=== PATIENT | male | born 1950 | race Caucasian/White ===

== ENCOUNTER 2023-04-10 09:34 | Outpatient (REF) | payer MEDICARE, SELFPAY ==
--- OUTSIDE RECORDS SUMMARY | 2023-04-10 09:36 | XMS_ITS | CCD ---
Author Name Unknown Address [address] [place] [address] [phone] Organization Unknown Address [address] [place] [address] [phone] Care Team Providers Care Manager Solution Name Role Phone UMANG CARR Attending Physician [phone] Vital Signs Unknown or Not Available. Allergies Allergy Code Allergy Type Reaction Status No Known Drug Allergies 0 No known drug allergies Active Procedures Procedure Code Procedure Type Date Extracapsular Cataract Remov al w/Insert IOL Prosthesis Manual/Mech w/o Endoscopic Cyclophotocoagulat 70400 CPT 10/31/2022 Anesthesia, Proc On Eye; Lens Surgery 76321 CPT 10/31/2022 History of Immunizations Unknown or Not Available. Problems Unknown or Not Available. Results Unknown or Not Available. Active Medications Medications Administered During Visit Medication Dose Units Frequency Route Date/Time of Last Dose MIDAZOLAM INJ SDV: 2MG/2ML 2 MG X1 IVP 10/31/2022 11:10 PROPARACAINE HCL OPTH SOLN 0 .5% 15ML 1 DROP Q5MIN OPTH 10/31/2022 10:4 7 CYCLOPENTOLATE 1% OPTH SOLN 2ML 1 DROP Q5MIN OPT 10/31/2022 10:47 PHENYLEPHRINE OPTH SOLN 2.5% 2ML 1 DROP Q5MIN OPT 10/31/2022 10:47 Encounters Encounter Diagnosis Diagnosis Code Start Date Unspecified age-related cataract H259 10/31/2022 Social History Smoking Status Code Start Date End Date Light tobacco smoker [id number] Patient Decision Aids Unknown or Not Available. Discharge Instructions You were admitted to [facility] on 10/31/2022 09:57 with a principal diagnosis of Unspecified age-related cataract You had the following procedures done:Extracapsular Cataract Removal w/Insert IOL Prosthesis Manual/Mech w/o Endoscopic CyclophotocoagulatAnesthesia, Proc On Eye; Lens Surgery You were discharged from [facility] on 10/31/2022 11:52 Should you have any questions prior to discharge, please contact a member of your healthcare team. If you have left the hospital and have any questions, please contact your primary care physician. Chief Complaint and Reason For Visit Unknown or Not Available. Function Status Unknown or Not Available. Plan of Care Unknown or Not Available. Referral/Transition of Care Unknown or Not Available.
--- OUTSIDE RECORDS SUMMARY | 2023-04-10 09:37 | XMS_ITS | CCD ---
Author Name Unknown Address [address] [place] [address] [phone] Organization Unknown Address [address] [place] [address] [phone] Care Team Providers Care Pump Technician Name Role Phone UMANG CARR Attending Physician [phone] Vital Signs Unknown or Not Available. Allergies Allergy Code Allergy Type Reaction Status No Known Drug Allergies 0 No known drug allergies Active Procedures Procedure Code Procedure Type Date Extracapsular Cataract Remov al w/Insert IOL Prosthesis Manual/Mech w/o Endoscopic Cyclophotocoagulat 92719 CPT 10/10/2022 Anesthesia, Proc On Eye; Lens Surgery 32215 CPT 10/10/2022 History of Immunizations Unknown or Not Available. Problems Unknown or Not Available. Results Unknown or Not Available. Active Medications Medications Administered During Visit Unknown or Not Available. Encounters Encounter Diagnosis Diagnosis Code Start Date Unspecified age-related cataract H259 10/10/2022 Social History Unknown or Not Available. Patient Decision Aids Unknown or Not Available. Discharge Instructions You were admitted to [facility] on 10/10/2022 08:25 with a principal diagnosis of Unspecified age-related cataract You had the following procedures done:Extracapsular Cataract Removal w/Insert IOL Prosthesis Manual/Mech w/o Endoscopic CyclophotocoagulatAnesthesia, Proc On Eye; Lens Surgery You were discharged from [facility] on 10/10/2022 11:04 Should you have any questions prior to [...]
[2023-04-10 20:51] LABS: ALT 33 U/L (16-63); AST 25 U/L (15-37); Albumin 3.9 g/dL (3.4-5.0); Alkaline Phosphatase 52 U/L (46-116); BUN 20 mg/dL (7-18); Bilirubin, Total 0.7 mg/dL (0.2-1.0); Calcium 9.3 mg/dL (8.5-10.1); Calculated LDL 92 mg/dL (<100); Chloride 104 mmol/L (98-107); Cholesterol 180 mg/dL (<200); Estimated GFR 79.97 (mL/min/1.73m2); Glucose 112 mg/dL (74-106); HDL Cholesterol 83 mg/dL (40-60); Potassium 4.5 mmol/L (3.5-5.1); Sodium 140 mmol/L (136-145); Total Protein 7.7 g/dL (6.4-8.2); Triglyceride 26 mg/dL (<150)
[2023-04-11 18:25] LABS: PSA, Screening 1.1 ng/mL (<=6.5)
== END 2023-04-10 09:35 | disposition home or self-care (01) ==
LOC: NCHCN 09:34
PROVIDERS: Visit Provider Nurse Practitioner Family
DX: I10 Essential (primary) hypertension (principal); E78.5 Hyperlipidemia, unspecified; Z12.5 Encounter for screening for malignant neoplasm of prostate
CPT/HCPCS: 80053; 80061; 84153

== ENCOUNTER 2023-04-29 09:15 | Outpatient (REF) | payer MEDICARE, SELFPAY ==
[2023-04-29 20:40] LABS: Hemoglobin A1C 5.7 % (<5.7)
== END 2023-04-29 09:16 | disposition home or self-care (01) ==
LOC: NCHCN 09:15
PROVIDERS: Visit Provider Nurse Practitioner Family
DX: R73.09 Other abnormal glucose (principal)
CPT/HCPCS: 83036

== ENCOUNTER 2024-04-14 10:20 | Outpatient (REF) | payer MEDICARE, SELFPAY ==
[2024-04-14 19:18] LABS: ALT 26 U/L (16-63); AST 26 U/L (15-37); Alkaline Phosphatase 62 U/L (46-116); Anion Gap 7.3 mmol/L (3-11); BUN 20 mg/dL (7-18); Bilirubin, Total 0.78 mg/dL (0.2-1.0); CO2 29.7 mmol/L (21.0-32.0); CREATININE 1.1 mg/dL (0.70-1.30); Calcium 9.7 mg/dL (8.5-10.1); Calculated LDL 88 mg/dL (<100); Chloride 108 mmol/L (98-107); Cholesterol 178 mg/dL (<200); Estimated GFR 70.88 (mL/min/1.73m2); Glucose 112 mg/dL (74-106); HDL Cholesterol 83 mg/dL (40-60); Sodium 145 mmol/L (136-145); Total Protein 7.9 g/dL (6.4-8.2); Triglyceride 38 mg/dL (<150)
== END 2024-04-14 10:21 | disposition home or self-care (01) ==
LOC: NCHCN 10:20
PROVIDERS: PCP Nurse Practitioner Family; Visit Provider Nurse Practitioner Family
DX: E78.5 Hyperlipidemia, unspecified (principal)
CPT/HCPCS: 80053; 80061